=== PATIENT | male | born 1940 | race Caucasian/White ===

== ENCOUNTER 2017-02-17 13:33 | Day surgery (SDC) | payer OTHER ==
[2017-02-17 06:02] VITALS: BMI 37.5
[~2017-02-17 13:33] MED LIST: Lidocaine 2% Inj (20ml) ONE
[2017-02-17] MEDS ORDERED: Midazolam 2 MG/2 ML VIAL ONE (14:06)
[2017-02-17] MEDS ORDERED: Iodixanol 320 mg/ml 150 ml Bottle IV ONE (14:09)
[2017-02-17] MEDS ORDERED: Iodixanol 320 MG/ML 100 ML BOTTLE IV ONE ×2 (14:09→14:58)
[2017-02-17] MEDS ORDERED: Iohexol 350mgl/ml 50 ML ONE (14:32)
--- NOTE | 2017-02-17 15:26 | CP.SDSHP ---
Same Day Surgery H & P - History Proposed Procedure: see [place] documentation. no change. - Allergies Allergies: Allergies Sulfa (Sulfonamide Antibiotics) Allergy (Verified 02/14/17 01:58) PAIN milk Adverse Reaction (Verified 02/14/17 01:58) NAUSEA Short Stay Discharge - Short Stay Discharge Admitting Diagnosis/Reason for Visit: CAD Disposition: HOME/ ROUTINE
--- NOTE | 2017-02-17 15:37 | CP.PCM.PN ---
Subjective - Date & Time of Evaluation Date of Evaluation: 02/17/17 Time of Evaluation: 15:30 - Subjective Subjective: s/p stents of the left circumflex. transfer back to [place]
[2017-02-17 16:11] VITALS: RESP 18; TEMP 97.4
[2017-02-17 18:44] VITALS: BP 152/54; PULSE 74
--- NOTE | 2017-02-17 23:32 | CARD ---
APPROVED REPORT EKG Measurement Heart [id number] <Conclusion> Normal sinus rhythm with sinus arrhythmia T wave abnormality, consider lateral ischemia Prolonged QT Abnormal ECG
--- NOTE | 2017-03-02 09:49 | CARD ---
APPROVED REPORT Procedure(s) performed: Left Heart Catheterization Left Ventriculogram Coronary Angiography and Percutaneous Coronary Intervention HISTORY 40%. (EF Method: Echocardiogram), previous CHF, renal failure with dialysis, peripheral vascular disease, diabetes mellitus with insulin treatment , chronic lung disease, previous diagnostic cath, tobacco history() : The patient is a former smoker , previous PCI (The PCI date was 09/09/2016), hypertension , dyslipidemia . INDICATION The indication(s) include : non-STEMI . CASE TECHNIQUE The patient was brought electively to the Cardiac Catheterization Laboratory in a fasting state and was prepped and draped in a sterile manner. The right femoral groin was infiltrated with 2% Lidocaine subcutaneous anesthesia. A 6 Fr x 11 cm Trisha sheath was inserted using coronary diagnostic catheters. The left coronary system was accessed and visualized with a 6 Fr JL 4 catheter. The right coronary system was accessed and visualized with a 6 Fr JR 4 catheter. The left ventricle was accessed and visualized with a 6 Fr Pigtail catheter. Left ventricular/Aortic Valve gradient assessed on pullback. Left ventriculogram was performed in [place] projection. Closure device was deployed with a 6 Fr Angio-Seal without any complications. The patient tolerated the procedure well and there were no complications associated with the procedure. Vessel Analysis The patient's coronary anatomy is right dominant. The left main bifurcates to the left anterior descending and circumflex. The left anterior descending artery is a medium size vessel . There is a 80% stenosis in the proximal segment. The circumflex artery is a medium size vessel . There is a 95% stenosis in the mid segment. The right coronary artery is a medium size vessel . There is a 50% stenosis in the proximal segment. Left Ventricle The left ventricular ejection fraction is estimated to be 35%. There was no gradient across the aortic valve upon pullback. PCI Technique Lesion Anticoagulation was achieved with Heparin. Percutaneous coronary intervention was performed on the mid circumflex artery segment. The lesion stenosis prior to intervention was 95% with TESS 3 flow. A 6 Fr XB 3.5 Guide Catheter was used to engage the ostium. A 0.014 x 300 cm Whisper MS Interventional Guidewire was used to cross the lesion. BALLOON DILATION A Balloon catheter 2.5 x 15 mm Sprinter RX was inserted and inflated up to 10.00atm for 17seconds. STENT DEPLOYMENT A drug-eluting stent 2.5 x 18 mm Alpine AUNG was inserted and inflated up to 11.00atm for 16seconds. Subsequent 2.5 x 15 and 3.0 x 12 was deployed. Final angiography reveals 0 % stenosis with TESS 3 flow. Conclusion Successful PCI of the left circumflex with Resolute drug eluting stents. Continue ASA/Brilinta 90 mg BID. Recommendations Aggressive Medical Therapy Weight Loss Reduction Program
== END 2017-02-17 20:23 | disposition short-term general hospital (02) ==
LOC: CATH 13:33 → 2RSO 16:00 → CATH 20:23
PROVIDERS: ATTEND Internal Medicine Cardiovascular Disease
DX: I21.4 Non-ST elevation (NSTEMI) myocardial infarction (principal); I13.10 Hypertensive heart and chronic kidney disease without heart failure, with stage 1 through stage 4 chronic kidney disease, or unspecified chronic kidney disease; I50.9 Heart failure, unspecified; I10 Essential (primary) hypertension; Z98.61 Coronary angioplasty status; E11.51 Type 2 diabetes mellitus with diabetic peripheral angiopathy without gangrene; E11.22 Type 2 diabetes mellitus with diabetic chronic kidney disease; N18.9 Chronic kidney disease, unspecified; J44.9 Chronic obstructive pulmonary disease, unspecified; Z99.2 Dependence on renal dialysis; Z79.4 Long term (current) use of insulin; Z87.891 Personal history of nicotine dependence; E78.5 Hyperlipidemia, unspecified
CPT/HCPCS: 82948; 85175; 93005; 93458; 99152; 99153; C1725 ×2; C1760; C1769 ×2; C1874 ×3; C1887; C2629; C9600; J1644 ×2; J2250; J3010; J7040; Q9967 ×2